=== PATIENT | male | born 1995 | race Caucasian/White ===

== ENCOUNTER 2017-02-17 10:59 | Emergency (ER) | payer OTHER, BC ==
[2017-02-17 11:09] VITALS: BP 153/98; PULSE 87; RESP 18; TEMP 97.7; O2SAT 96
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
== END 2017-02-17 11:40 | disposition home or self-care (01) ==
DX: S09.90XA Unspecified injury of head, initial encounter (principal); V48.0XXA Car driver injured in noncollision transport accident in nontraffic accident, initial encounter; Y92.828 Other wilderness area as the place of occurrence of the external cause; Y99.8 Other external cause status; Y93.89 Activity, other specified